=== PATIENT | female | born 1970 | race Caucasian/White ===

== ENCOUNTER 2016-09-28 16:14 | Emergency (ER) | payer SELFPAY ==
[~2016-09-28] VITALS: Ht 160 cm; Wt 89.5 kg
[~2016-09-28 16:14] MED LIST: ACET500T98 PO; AMLO1CAP33 PO; CEPH-443 PO; DEXL60CA2 PO; IBUP-1542 PO; UDROBDM PO
[2016-09-28 16:37] VITALS: Ht 160 cm; Wt 89.5 kg
== END 2016-09-28 22:57 | disposition left against medical advice (07) ==
LOC: FTE 16:14
DX: Z53.21 Procedure and treatment not carried out due to patient leaving prior to being seen by health care provider (principal)